=== PATIENT | male | born 2000 | race Caucasian/White ===

== ENCOUNTER 2024-01-09 09:32 | Emergency (ER) | payer OTHER ==
[2024-01-09 11:24] VITALS: BP 125/82; TEMP 98.3; O2SAT 98
[2024-01-09] MEDS ORDERED: OCUF0.25 OD (11:42)
== END 2024-01-09 11:57 | disposition home or self-care (01) ==
LOC: M ED 11:16
DX: S05.01XA Injury of conjunctiva and corneal abrasion without foreign body, right eye, initial encounter (principal); Z79.2 Long term (current) use of antibiotics; Y92.009 Unspecified place in unspecified non-institutional (private) residence as the place of occurrence of the external cause; Y93.89 Activity, other specified; Y99.9 Unspecified external cause status